=== PATIENT | male | born 1965 | race Asian ===

== ENCOUNTER 2016-10-25 05:13 | Emergency (ER) | payer OTHER ==
[~2016-10-25] VITALS: Ht 175.3 cm; Wt 79.4 kg
[2016-10-25 05:27] VITALS: BP 128/77; TEMP 98.2
== END 2016-10-25 06:50 | disposition home or self-care (01) ==
LOC: ED 05:13
DX: M75.52 Bursitis of left shoulder (principal)
CPT/HCPCS: 99283

== ENCOUNTER 2016-10-31 05:52 | Emergency (ER) | payer OTHER ==
[~2016-10-31] VITALS: Ht 175.3 cm; Wt 79.4 kg
[2016-10-31 06:13] VITALS: TEMP 97.9
[2016-10-31 07:59] LABS: PLATELET COUNT 240 K/uL (142-355)
[2016-10-31 08:00] VITALS: BP 130/80
[2016-10-31 08:08] LABS: POTASSIUM 4.1 mmol/L (3.6-5.2); SODIUM 138 mmol/L (136-145)
== END 2016-10-31 08:00 | disposition home or self-care (01) ==
LOC: ED 05:52
PROVIDERS: Emergency Medicine
DX: K29.60 Other gastritis without bleeding (principal); B96.81 Helicobacter pylori [H. pylori] as the cause of diseases classified elsewhere
CPT/HCPCS: 36415; 80053; 81000; 82150; 83690; 85027; 86318; 96372; 99284; J1885

== ENCOUNTER 2017-01-09 06:35 | Observation (INO) | payer OTHER ==
[~2017-01-09] VITALS: Ht 175.3 cm; Wt 63.6 kg
[2017-01-09] VITALS (8 sets, daily range): BP systolic 113–167; BP diastolic 61–100; TEMP 97.6–98.6; Ht 175.3 cm; Wt 63.6 kg
[2017-01-09 08:05] LABS: PLATELET COUNT 223 K/uL (142-355)
[2017-01-09 08:09] LABS: POTASSIUM 3.7 mmol/L (3.6-5.2); SODIUM 135 mmol/L (136-145)
[2017-01-09 08:25] LABS: PARTIAL THROMBOPLASTIN TIME 27.5 SECONDS (24.5-33.6)
--- NOTE | 2017-01-09 10:15 | NUR ---
PT TO ROOM 1107 VIA WC FROM ER. NAD NOTED. ASSESSMENT COMPLETE. PT REQUEST TO GO OUTSIDE TO SMOKE. INSTRUCTED PT NURSE COULD NOT MONITOR TELE AND RISK OF SMOKING. PT INSIST TO GO OUTSIDE. ORIENTED PT TO ROOM AND CONTROLS. IV INTACT TO R FOREARM.
[2017-01-10] VITALS: BP 100/56; TEMP 98.6
[2017-01-10 04:00] VITALS: BP 129/79; TEMP 97.5
[2017-01-10 05:49] LABS: PLATELET COUNT 219 K/uL (142-355)
[2017-01-10 06:14] LABS: SODIUM 137 mmol/L (136-145)
[2017-01-10 08:00] VITALS: BP 114/78; TEMP 98.8
[2017-01-10 12:24] VITALS: BP 126/77; TEMP 97.8
[2017-01-10 15:20] VITALS: BP 120/75; TEMP 98.6
--- NOTE | 2017-01-10 17:18 | NUR ---
DC INSTRUCTIONS GIVEN AND PT VERBALIZES UNDERSTANDING. NAD NOTED. IV DC'D WITH CANNULA INTACT AND SITE CARE PROVIDED. PT UNDERSTANDS TO MAKE FOLLOW UP APPT WITH PCP IN 3-5 DAYS. PT LEFT VIA WC WITH TECH AT THIS TIME.
--- NOTE | 2017-01-10 17:19 | NUR ---
RX GIVEN TO PT AND EXPLAINED. PT LEFT VIA WC AT THIS TIME
== END 2017-01-10 17:30 | disposition home or self-care (01) ==
LOC: ED 06:35 → MED/SURG 08:52
PROVIDERS: Emergency Medicine; ADMIT Emergency Medicine
DX: R07.89 Other chest pain (principal); M75.52 Bursitis of left shoulder; K27.9 Peptic ulcer, site unspecified, unspecified as acute or chronic, without hemorrhage or perforation; A04.8 Other specified bacterial intestinal infections
CPT/HCPCS: 36415; 80053; 80307; 82550; 83735; 83880; 84484; 85027; 85610; 85730; 93005; 96372; 99220; 99284; G0378; G0479; J1650

== ENCOUNTER 2017-01-22 09:15 | Outpatient (CLI) | payer OTHER | END 2017-01-22 10:30 | disposition home or self-care (01) | LOC: RAD 09:15 | DX: M25.512 Pain in left shoulder (principal) ==

== ENCOUNTER 2021-12-31 07:38 | Emergency (ER) | payer OTHER ==
[~2021-12-31] VITALS: Ht 172.7 cm; Wt 71.2 kg
[2021-12-31 07:43] VITALS: BP 142/82; TEMP 97.3
[2021-12-31 08:05] LABS: PLATELET COUNT 218 K/uL (142-355)
[2021-12-31 08:19] LABS: POTASSIUM 4.7 mmol/L (3.6-5.2)
[2021-12-31] MEDS ORDERED: PANTOPRAZOLE 40MG TA PO (09:32)
[2021-12-31] MEDS ORDERED: KETO10TA34 PO (09:32)
== END 2021-12-31 09:37 | disposition home or self-care (01) ==
LOC: ED 07:38
PROVIDERS: Hospitalist
DX: R10.33 Periumbilical pain (principal)
CPT/HCPCS: 80053; 81000; 83690; 85027; 96360; 96374; 96375; 99284; J1885; J3490; Q9963

== ENCOUNTER 2022-03-27 08:17 | Outpatient (CLI) | payer OTHER ==
[~2022-03-27 08:17] MED LIST: KETO10TA34 PO; PANTOPRAZOLE 40MG TA PO
[2022-03-27 08:50] LABS: PLATELET COUNT 205 K/uL (142-355)
[2022-03-27 08:56] LABS: POTASSIUM 3.9 mmol/L (3.6-5.2)
== END 2022-03-27 18:50 | disposition home or self-care (01) ==
LOC: LABW 08:17
PROVIDERS: ATTEND Family Medicine
DX: M19.90 Unspecified osteoarthritis, unspecified site (principal); I10 Essential (primary) hypertension; M79.604 Pain in right leg; F41.9 Anxiety disorder, unspecified; R73.9 Hyperglycemia, unspecified
CPT/HCPCS: 36415; 80053; 80061; 81002; 83036; 84439; 84443; 85027